=== PATIENT | male | born 1980 | race Caucasian/White ===

== ENCOUNTER → 2020-02-16 | Outpatient (CLI) | payer OTHER | LOC: DAH 10:00 → EDSTATUS 02-23 08:00 | PROVIDERS: ATTEND Internal Medicine Gastroenterology | DX: Z01.818 Encounter for other preprocedural examination (principal); K92.2 Gastrointestinal hemorrhage, unspecified; F90.9 Attention-deficit hyperactivity disorder, unspecified type; F41.9 Anxiety disorder, unspecified; K59.01 Slow transit constipation; Z79.899 Other long term (current) drug therapy; R12 Heartburn; Z11.59 Encounter for screening for other viral diseases | CPT/HCPCS: 36415; U0003 ==